=== PATIENT | female | born 1985 | race African-American/Black ===

== ENCOUNTER 2017-02-22 13:45 | Emergency (ER) | payer OTHER ==
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
== END 2017-02-22 15:41 | disposition home or self-care (01) ==
LOC: BURERS 13:45
DX: S33.5XXA Sprain of ligaments of lumbar spine, initial encounter (principal); S00.93XA Contusion of unspecified part of head, initial encounter; S80.01XA Contusion of right knee, initial encounter; F31.9 Bipolar disorder, unspecified; F41.9 Anxiety disorder, unspecified; V49.9XXA Car occupant (driver) (passenger) injured in unspecified traffic accident, initial encounter